=== PATIENT | male | born 1995 | race Caucasian/White ===

== ENCOUNTER 2017-06-21 16:03 | Emergency (ER) | payer SELFPAY ==
[~2017-06-21] VITALS: Ht 182.9 cm; Wt 81.6 kg
[2017-06-21 16:16] VITALS: BP 126/79
[2017-06-21] MEDS: IPRATROPIUM NEB FS 0.5 MG/2.5 ML AMPUL.NEB NEB ONE (16:43)
[2017-06-21] MEDS: ALBUTEROL FS 2.5 MG/3 ML VIAL.NEB NEB ONE (16:43)
[2017-06-21] MEDS ORDERED: IPRATROPIUM NEB FS 0.5 MG/2.5 ML AMPUL.NEB ONE (16:50)
[2017-06-21] MEDS ORDERED: ALBUTEROL FS 2.5 MG/3 ML VIAL.NEB ONE (16:50)
== END 2017-06-21 17:26 | disposition home or self-care (01) ==
LOC: ER 16:07
DX: J45.909 Unspecified asthma, uncomplicated (principal); B34.9 Viral infection, unspecified; F17.200 Nicotine dependence, unspecified, uncomplicated
CPT/HCPCS: A4606; Z7610

== ENCOUNTER 2018-12-06 10:29 | Emergency (ER) | payer SELFPAY ==
[~2018-12-06] VITALS: Ht 182.9 cm; Wt 82.6 kg
[2018-12-06 10:36] VITALS: BP 135/71
--- NOTE | 2018-12-06 10:48 | NUR ---
URINE SPECIMEN COLLECTED AND SENT TO LAB.
[2018-12-06] MEDS ORDERED: CEFTRIAXONE 1 G VIAL IM ONE (11:00)
[2018-12-06] MEDS ORDERED: AZITHROMYCIN 250 MG TABLET PO ONE (11:00)
[2018-12-06] MEDS ORDERED: CEFTRIAXONE 500 MG VIAL ONE (11:04)
[2018-12-06] MEDS ORDERED: AZITHROMYCIN 250 MG TABLET ONE (11:04)
[2018-12-06] MEDS ORDERED: LIDOCAINE /MPF 1% VIAL 5 ML VIAL ONE (11:05)
--- NOTE | 2018-12-06 11:23 | NUR ---
Patient discharged to home in stable condition. Written and verbal after care instructions given. Patient verbalizes understanding of instruction.
== END 2018-12-06 11:25 | disposition home or self-care (01) ==
LOC: ER 10:32
DX: R36.9 Urethral discharge, unspecified (principal); F17.200 Nicotine dependence, unspecified, uncomplicated
CPT/HCPCS: 96372; 99283; A4606; J0696; J3490; Z7610

== ENCOUNTER 2020-07-22 10:36 | Emergency (ER) | payer OTHER ==
[~2020-07-22] VITALS: Ht 182.9 cm; Wt 88.5 kg
[2020-07-22 10:36] VITALS: BP 121/75
--- NOTE | 2020-07-22 11:04 | NUR ---
Patient discharged to home in stable condition. Written and verbal after care instructions given. Patient verbalizes understanding of instruction.
== END 2020-07-22 11:04 | disposition home or self-care (01) ==
LOC: ER 10:42
DX: L97.821 Non-pressure chronic ulcer of other part of left lower leg limited to breakdown of skin (principal)